=== PATIENT | male | born 1995 | race Caucasian/White ===

== ENCOUNTER 2017-06-06 05:27 | Emergency (ER) | payer OTHER ==
[2017-06-06] MEDS ORDERED: TORADOL IV ONE (06:55)
[2017-06-06] MEDS ORDERED: DECADRON IV ONE (06:55)
[2017-06-06] MEDS ORDERED: CLEOCIN 600 MG/50 mL 600 MG/50 ML BAG IV ONE (06:55)
[2017-06-06] MEDS ORDERED: NACL 0.9% 1000 ML 1,000 ML IV ONE (06:57)
--- NOTE | 2017-06-06 07:13 | Emergency Department Report ---
Chief Complaint: Sore Throat Stated Complaint: SORE THROAT/PAINFUL TO SWALLOW - HPI History of Present Illness: 20-year-old male presents with complaint of 2-3 days of worsening sore throat difficulty swallowing solids and liquids secondary to pain - ROS Review of Systems: 3 days of worsening sore throat - Exam Vital Signs: Vital Signs 06/06/17 05:32 Temperature 99.5 F Pulse Rate 88 Respiratory 20 Rate Blood Pressure 135/80 O2 Sat by Pulse 98 Oximetry Physical Exam: Visible pharyngeal erythema and exudates possible right-sided [employer] MSE screening note: Focused history and physical exam performed. Due to findings the following was ordered: Screening Assessment/Plan/Differential Dx: Possible right-sided peritonsillar abscess 1- This initial assessment/diagnostic orders/clinical plan/ treatment(s) is/are subject to change based on pt's health status, clinical progression and re- assessment by fellow clinical providers in the ED. Further treatment and workup at subsequent clinical provers discretion. Patient/guardians urged not to elope from ED as their condition may be serious if not clinically assessed and managed. 2-CT neck with contrast EMP, CBC 3-IV clindamycin, IV Decadron, IV Toradol 4-nothing by mouth until study can determine if there is a peritonsillar abscess ED Disposition for MSE Condition: Stable
[2017-06-06 07:26] LABS: Basophils % (Auto) 0.3 % (0.0-1.8); Hematocrit 43.3 % (35.5-45.6); Hemoglobin 14.6 gm/dl (11.8-15.2); Mean Corpuscular HGB Conc 34 % (32-34); Mean Corpuscular Hemoglobin 30 pg (28-32); Mean Corpuscular Volume 88 fl (84-94); Platelet Count 184 K/mm3 (140-440); Red Blood Count 4.89 M/mm3 (3.65-5.03); Red Cell Distribution Width 12.3 % (13.2-15.2); White Blood Count 17.7 K/mm3 (4.5-11.0)
[2017-06-06 07:32] LABS: Anion Gap 18 mmol/L; Blood Urea Nitrogen 12 mg/dL (9-20); Carbon Dioxide 25 mmol/L (22-30); Chloride 97.7 mmol/L (98-107); Glucose 101 mg/dL (75-100); Potassium 3.4 mmol/L (3.6-5.0); Sodium 137 mmol/L (137-145)
[2017-06-06] MEDS ORDERED: NACL ONE ×2 (07:33→07:44)
[2017-06-06 08:18] VITALS: BP 138/78
--- NOTE | 2017-06-06 08:58 | Cat Scan Report ---
CT scan of neck with IV contrast: History: Right-sided peritonsillar abscess. Findings: The right palatine tonsil appears slightly enlarged compared to left. There is no definite abscess identified. The nasopharyngeal and oropharyngeal airway appears unremarkable. Paravertebral soft tissue appears normal. No evidence of adenopathy. Normal vascular structures of the neck. Impression: Probable acute right tonsillitis. No evidence of abscess.
[2017-06-06] MEDS ORDERED: NORCO 7.5/325 PO ONE (09:47)
--- NOTE | 2017-06-06 10:32 | Emergency Department Report ---
ED ENT HPI - General Chief complaint: Sore Throat Stated complaint: SORE THROAT/PAINFUL TO SWALLOW Time Seen by Provider: 06/06/17 06:58 Source: patient Mode of arrival: Ambulatory Limitations: No Limitations - History of Present Illness Initial comments: 21 year old male presents to ED with sore throat and painful swallowing x2 days. patient denies diff breathing, drooling or stridor or cough. patient is stable, neurologically intact and in no acute distress. MD complaint: sore throat, difficulty swallowing -: Gradual (2 days) Location: throat Severity: mild Quality: aching Consistency: constant Improves with: NSAID Worsens with: swallowing Associated Symptoms: pain with swallowing, sore throat - Related Data Previous Rx's Medication Instructions Recorded Last Taken Type Clindamycin [Clindamycin CAP] 300 mg PO Q8H #30 cap 06/06/17 Unknown Rx Ibuprofen [Motrin] 800 mg PO Q8HR #21 tablet 06/06/17 Unknown Rx Allergies Allergy/AdvReac Type Severity Reaction Status Date / Time No Known Allergies Allergy Verified 06/06/17 05:32 ED Dental HPI - General Chief complaint: Sore Throat Stated complaint: SORE THROAT/PAINFUL TO SWALLOW Time Seen by Provider: 06/06/17 06:58 Source: patient Mode of arrival: Ambulatory Limitations: No Limitations - Related Data Previous Rx's Medication Instructions Recorded Last Taken Type Clindamycin [Clindamycin CAP] 300 mg PO Q8H #30 cap 06/06/17 Unknown Rx Ibuprofen [Motrin] 800 mg PO Q8HR #21 tablet 06/06/17 Unknown Rx Allergies Allergy/AdvReac Type Severity Reaction Status Date / Time No Known Allergies Allergy Verified 06/06/17 05:32 ED Review of Systems ROS: Stated complaint: SORE THROAT/PAINFUL TO SWALLOW Other details as noted in HPI Constitutional: denies: chills, fever Eyes: denies: eye pain, eye discharge, vision change ENT: throat pain. denies: ear pain Respiratory: denies: cough, shortness of breath, wheezing Cardiovascular: denies: chest pain, palpitations Endocrine: no symptoms reported Gastrointestinal: denies: abdominal pain, nausea, diarrhea Genitourinary: denies: urgency, dysuria Musculoskeletal: denies: back pain, joint swelling, arthralgia Skin: denies: rash, lesions Neurological: denies: headache, weakness, paresthesias Psychiatric: denies: anxiety, depression Hematological/Lymphatic: denies: easy bleeding, easy bruising ED Past Medical Hx - Past Medical History Previous Medical History?: No - Surgical History Past Surgical History?: No - Social History Smoking Status: Current Some Day Smoker Substance Use Type: None - Medications Home Medications: Home Medications Medication Instructions Recorded Confirmed Last Taken Type Clindamycin [Clindamycin CAP] 300 mg PO Q8H #30 cap 06/06/17 Unknown Rx Ibuprofen [Motrin] 800 mg PO Q8HR #21 tablet 06/06/17 Unknown Rx ED Physical Exam - General Limitations: No Limitations General appearance: alert, in no apparent distress - Head Head exam: Present: atraumatic, normocephalic - Eye Eye exam: Present: normal appearance, EOMI - ENT ENT exam: Present: mucous membranes moist, other (mild swelling of right tonsil with exudate present) - Neck Neck exam: Present: normal inspection - Respiratory Respiratory exam: Present: normal lung sounds bilaterally. Absent: respiratory distress - Cardiovascular Cardiovascular Exam: Present: regular rate, normal rhythm. Absent: systolic murmur, diastolic murmur, rubs, gallop - GI/Abdominal GI/Abdominal exam: Present: soft, normal bowel sounds. Absent: distended, tenderness - Rectal Rectal exam: Present: deferred - Extremities Exam Extremities exam: Present: normal inspection - Back Exam Back exam: Present: normal inspection - Neurological Exam Neurological exam: Present: alert, oriented X3, normal gait - Psychiatric Psychiatric exam: Present: normal affect, normal mood - Skin Skin exam: Present: warm, dry, intact, normal color. Absent: rash ED Course Vital Signs 06/06/17 06/06/17 06/06/17 05:32 08:17 08:21 Temperature 99.5 F 99.3 F Pulse Rate 88 74 Respiratory 20 16 16 Rate Blood Pressure 135/80 Blood Pressure 138/78 [Left] O2 Sat by Pulse 98 98 98 Oximetry ED Medical Decision Making - Lab Data Result diagrams: 06/06/17 07:01 06/06/17 07:01 Labs 06/06/17 06/06/17 07:01 07:01 WBC 17.7 H RBC 4.89 Hgb 14.6 Hct 43.3 MCV 88 MCH 30 MCHC 34 RDW 12.3 L Plt Count 184 Lymph % (Auto) 7.2 L Boundary % (Auto) 7.3 Eos % (Auto) 0.0 Baso % (Auto) 0.3 Lymph # 1.3 Boundary # 1.3 H Eos # 0.0 Baso # 0.1 Seg Neutrophils % 85.2 H Seg Neutrophils # 15.1 H Carbon Dioxide 25 BUN 12 Creatinine 1.1 Estimated GFR > 60 BUN/Creatinine Ratio 10.90 Glucose 101 H Calcium 9.0 - Radiology Data Radiology results: report reviewed CT soft tissue neck Probable acute right tonsillitis. No evidence of abscess. Normal vasculature structures of the neck. Right palatine tonsil appears slightly enlarged to left. - Medical Decision Making 21 year old male presents to ED with right sided throat pain. patient has CT showing probable right tonsilitis with no evidence of abscess. patient has recieved IV antibiotics, steroids and NSAIDS during ED visit. patient will be discharged with ENT follow up and RX for NSAIDS and antibiotics. patient is stable, neurologically intact and in no acute distress. Critical care attestation.: If time is entered above; I have spent that time in minutes in the direct care of this critically ill patient, excluding procedure time. ED Disposition Clinical Impression: Acute tonsillitis Qualifiers: Pharyngitis/tonsillitis etiology: unspecified etiology Qualified Code(s): J03.90 - Acute tonsillitis, unspecified Disposition: DC- TO HOME OR SELFCARE Is pt being admited?: No Does the pt Need Aspirin: No Condition: Stable Instructions: Tonsillitis (ED) Prescriptions: Clindamycin [Clindamycin CAP] 300 mg PO Q8H #30 cap Ibuprofen [Motrin] 800 mg PO Q8HR #21 tablet Referrals: ASUNCION REECE MD [Staff Physician] - 2-3 Days JODI WHEATLEY MD [Staff Physician] - 2-3 Days BOBY VANN MD [Staff Physician] - 2-3 Days SUSHANT ARANA MD [Staff Physician] - 2-3 Days Forms: Work/School Release Form(ED)
== END 2017-06-06 11:05 | disposition home or self-care (01) ==
LOC: ED 05:27
DX: J03.90 Acute tonsillitis, unspecified (principal); F17.200 Nicotine dependence, unspecified, uncomplicated
CPT/HCPCS: 36415; 70491; 80048; 85025; 87040; 87116; 87430; 96365; 96375; 99284; J1100; J1885; J7030; Q9967